=== PATIENT | male | born 1980 | race Hispanic/Latino ===

== ENCOUNTER 2017-11-08 20:42 | Inpatient (IN) | payer MEDICAID ==
[2017-11-08 20:57] VITALS: O2SAT 98
--- NOTE | 2017-11-08 20:58 | C.PDOC ---
History Of Present Illness 37 y/o M BIBEMS as transfer for admission to psych. Patient was medically cleared and accepted by ED physician prior to his arrival. Time Seen by Provider: 11/08/17 20:45 Chief Complaint (Nursing): Psychiatric Evaluation Past Medical History Family History: States: No Known Family Hx Review Of Systems Except As Marked, All Systems Reviewed And Found Negative. Constitutional: Negative for: Fever Cardiovascular: Negative for: Chest Pain Physical Exam - Physical Exam Additional Physical Exam Comments: Gen: NAD Head: NC CV: Regular rate Resp: No accessory muscle use Disposition Discussed With : Carol Alfonso Doctor Will See Patient In The: Hospital - Disposition Disposition: HOME/ ROUTINE Disposition Time: 20:58 Condition: STABLE - Clinical Impression Clinical Impression: Bipolar disorder
--- NOTE | 2017-11-08 21:52 | PCM.BM ---
<Eli Thakur - Last Filed: 11/08/17 21:52> Treatment Plan Problems - Problems identified on initial assessmt Depression Date Initiated: 11/08/17 Time Initiated: 21:52 Assessment reference: NA Status: Active Treatment assets and liabiliti Patient Assests: cooperative, self-reliant, ADL independent, cognitively intact Patient Liabilities: medical problems - Milieu Protocol Maintain good personal hygiene: daily Encourage regular showers, daily Remind patient to perform daily oral care Conduct patient checks and document Observation sheet: Q15 minutes Maintain personal safety: every shift Educate patient to report safety concerns to staff, every shift Monitor environment for contraband/sharps Medication safety: Monitor for expected outcome, potential side effects: every shift, Assess barriers to learning: every shift, Assess readiness for medication education: every shift <Bandar Ang - Last Filed: 11/10/17 08:50> - Diagnosis (1) Major depression Status: Acute Interventions: 11/10/17 08:50 * Assess/adjust medications daily and /or as needed * See patient on an individual basis 7x/week to assess symptoms of depression * Monitor for side effects & effectiveness of medications * (2) Opioid use disorder, severe, dependence Status: Acute Interventions: 11/10/17 08:50 * Assess 7x/week regarding severity of withdrawal * Educate regarding risks, benefits, side effects and alternatives of medications * Use Motivational Interviewing for abstinence * Use CBT for relapse prevention * Medication management for withdrawal symptoms * Encourage medication assisted treatment *
--- NOTE | 2017-11-09 13:19 | PCM.PSYCH ---
Initial Psychiatric Evaluation - Initial Psychiatric Evaluation Type of Admission: Involuntary Chief Complaint (in patient's own words): "My called the it account manager on me because she thought I was using drugs again." History of Present Illness and Precipitating Events: Patient is a 37 year old male with a history of opioid abuse, who was transferred to [facility] Psychiatry unit from [facility] for depression and suicidal ideation. Patient is and lives with in [facility]. Patient has 3 children (ages 16, 14, and 13) from previous relationship. 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 As per the patient, patient and his were in an argument, his thinks the patient is using drugs again, and then called the it account manager and told them he was suicidal. Tool Grinder took the patient to [facility], but was transferred to [facility] as [facility] dose not have a psych unit. Patient currently denies suicidal or homicidal ideations, and reports he "has never had suicidal thoughts in the past". Patient also denies abusing drugs and reports he has been clean since completing detox in 12/2016. He states that his does not know how to handle his previous history of drug abuse and gets nervous he will relapse. He reports she called the it account manager and told them he was suicidal to get him admitted in hopes that he will then be transferred to the detox unit. Patient reports he takes Gabapentin 1200mg four times daily, and is requesting for the dosing to be adjusted, as he "has been getting the wrong dose". Patient's pharmacy was called and medications were confirmed. Patient is prescribed Gabapentin 400mg six times daily and Seroquel 200mg ER. Hospital records from [facility] was reviewed and revealed more details reported by the about patient's suicidal ideations and threats. Patient's , Tess, was contacted via phone with patient present in room to obtain more information. As per patient's , the patient was threatening that he was going to use a large amount of heroin and end his life. She also reports that last week, he threatened suicide, took a cord and was walking outside to hang himself, but she intervened. The patient's states that when the patient does not get his way, he threatens to hurt himself. The patient 's also reports the patient is using suboxone that he gets from the streets , and his last use was 2 days before admission. [place] DIRECTOR OF TEACHING AND LEARNING was reviewed and showed the patient has filled prescriptions for oxycodone 4 times in September and once in July. Patient reports those were prescribed for his surgeries and dental surgeries and that he only takes as prescribed. Patient admits to occasional alcohol use and tobacco use. PMHx: opioid use disorder ("clean from pain killers since 12/2016"), shoulder surgery, knee surgery 2016 FamHx: mother-anxiety, father- alcohol abuse; as per , patient's brother recently tried committing suicide Current Medications: Active Medications Generic Name Dose Route Start Last Admin Trade Name Freq PRN Reason Stop Dose Admin Clonidine HCl 0.2 mg 11/09/17 10:00 11/09/17 10:21 Catapres PO 0.2 mg TID DEANNA Administration Gabapentin 600 mg 11/08/17 22:00 11/08/17 22:49 Neurontin PO 600 mg HS DEANNA Administration Hydroxyzine HCl 25 mg 11/08/17 23:45 Atarax PO Q6 PRN Agitation Levetiracetam 500 mg 11/08/17 22:00 11/09/17 10:20 Keppra PO 500 mg Q12 DEANNA Administration Nicotine 1 patch 11/09/17 10:00 11/09/17 10:24 Nicoderm Cq TD 1 patch DAILY DEANNA Administration Quetiapine Fumarate 200 mg 11/08/17 22:00 11/08/17 22:49 Seroquel PO 200 mg HS DEANNA Administration Past Psychiatric History - Past Psychiatric History Pertinent Medical Hx (Current Medical&Sleep Prob, Allergies): Allergies Allergy/AdvReac Type Severity Reaction Status Date / Time moxifloxacin [From Avelox] Allergy Verified 11/08/17 20:44 Gabapentin [Neurontin] 600 mg PO BID 11/08/17 Nicotine 21 mg/24 hr [Nicoderm Cq] 21 mg TOP Q24H 11/08/17 QUEtiapine [SEROquel] 200 mg PO DAILY 11/08/17 cloNIDine [clonidine HCl] 0.2 mg PO Q8H 11/08/17 levETIRAcetam [Keppra] 500 mg PO BID 11/08/17 Review of Systems - Neurological Neurological: UNREMARKABLE - Psychiatric Psychiatric: UNREMARKABLE. absent: Anxiety, Hallucinations, Homicidal Ideation , Irritability, Suicidal Ideation Mental Status Examination - Personal Presentation Personal Presentation: Looks stated age - Affect Affect: Broad - Motor Activity Motor Activity: Calm - Reliability in Providing Information Reliability in Providing Information: Fair - Speech Speech: Organized - Mood Mood: Neutral - Formal Thought Process Formal Thought Process: No Impairment - Cognitive Functions Orientation: Person, Place, Situation, Time Sensorium: Alert Attention/Concentration: Attentive Estimate of Intelligence: Average Memory: Recent intact, as evidence by: Ability to recall events of the day - Risk Risk: Withdrawal - Strength & Assets Inventory Strength & Assets Inventory: Family support DSM 5 DX - DSM 5 DSM 5 Diagnosis: Opioid use disorder Personality disorder, NOS Depressive disorder, NOS - Recommended/Plan of Treatment Treatment Recommendations and Plan of Treatment: Continue Gabapentin Continue Seroquel Attend groups and activities Individual therapy daily Psychoeducation and support daily Encourage compliance with meds and after care Refer to outpatient program, to include independent and couples psychotherapy Teach healthy lifestyle methods, i.e. diet, exercise, meditation Consider [facility] outpatient medication management for opioid use disorder Smoking cessation and patch 32 min Projected ELOS: 7 Prognosis: Good with treatment - Smoking Cessation Smoking Cessation Initiated: No
[2017-11-10 06:03] VITALS: BP 125/86; PULSE 89; RESP 18; TEMP 97.7
--- NOTE | 2017-11-10 14:30 | PCM.PYCHDC ---
Mental Status Examination - Mental Status Examination Orientation: Person, Place, Situation, Time Memory: Intact Mood: Neutral Affect: Broad Speech: Appropriate Attention: WNL Concentration: WNL Association: WNL Fund of Knowledge: WNL Formal Thought Process: No Impairment Suicidal Ideation: No Current Homicidal Ideation?: No Discharge Summary - Discharge Note Consultations:: List each consultation separately and include: 1. Reason for request. 2. Findings. 3. Follow-up Summary of Hospital Course include:: 1. Description of specific treatment plan utilized for patients during their course of treatmen. 2. Summarize the time- course for resolution of acute symptoms and/or regressed behaviors. 3. Describe issues identified and worked on during hospitalization. 4. Describe medication utilized. 5. Describe medical problems identified and treated. 6. Reassessment of suicide risk Summary of Hospital Course: HPI: Patient is a 37 year old male with a history of opioid abuse, who was transferred to [facility] Psychiatry unit from [facility] for depression and suicidal ideation. Patient is and lives with in [facility]. Patient has 3 children (ages 16, 14, and 13) from previous relationship. 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 As per the patient, patient and his were in an argument, his thinks the patient is using drugs again, and then called the ribber and told them he was suicidal. Mortgage Loan Counselor took the patient to [facility], but was transferred to [facility] as [facility] dose not have a psych unit. Patient currently denies suicidal or homicidal ideations, and reports he "has never had suicidal thoughts in the past". Patient also denies abusing drugs and reports he has been clean since completing detox in 12/2016. He states that his does not know how to handle his previous history of drug abuse and gets nervous he will relapse. He reports she called the ribber and told them he was suicidal to get him admitted in hopes that he will then be transferred to the detox unit. Patient reports he takes Gabapentin 1200mg four times daily, and is requesting for the dosing to be adjusted, as he "has been getting the wrong dose". Patient's pharmacy was called and medications were confirmed. Patient is prescribed Gabapentin 400mg six times daily and Seroquel 200mg ER. Hospital records from [facility] was reviewed and revealed more details reported by the about patient's suicidal ideations and threats. Patient's , Tess, was contacted via phone with patient present in room to obtain more information. As per patient's , the patient was threatening that he was going to use a large amount of heroin and end his life. She also reports that last week, he threatened suicide, took a cord and was walking outside to hang himself, but she intervened. The patient's states that when the patient does not get his way, he threatens to hurt himself. The patient 's also reports the patient is using suboxone that he gets from the streets , and his last use was 2 days before admission. [place] REAL ESTATE PROFESSIONAL was reviewed and showed the patient has filled prescriptions for oxycodone 4 times in September and once in July. Patient reports those were prescribed for his surgeries and dental surgeries and that he only takes as prescribed. Patient admits to occasional alcohol use and tobacco use. PMHx: opioid use disorder ("clean from pain killers since 12/2016"), shoulder surgery, knee surgery 2016 FamHx: mother-anxiety, father- alcohol abuse; as per , patient's brother recently tried committing suicide Hospital Course: Theptwas admitted and started on treatment with psychotherapy, support, psychoeducationand medications. All the risks and benefits of medications are discussed and the patient understood and agreed. OR and CBT used. Theptattended groups and activities. Theptimproved with the treatments provided. After care discussedwith thepatient. Encouraged patient to consider suboxone or vivitrol and to attend individual and couples therapy. - Final Diagnosis (DSM 5) Condition upon Discharge: STABLE DSM 5: Opioid use disorder Personality disorder, NOS Depressive disorder, NOS Disposition: HOME/ ROUTINE Follow-up Treatment Plan: Continue Gabapentin Continue Seroquel Attend groups and activities Individual therapy daily Psychoeducation and support daily Encourage compliance with meds and after care Refer to outpatient program, to include independent and couples psychotherapy Teach healthy lifestyle methods, i.e. diet, exercise, meditation Consider intermediate outpatient medication management for opioid use disorder Smoking cessation and patch 32 min Prescriptions/Medication Reconciliation: Gabapentin [Neurontin] 800 mg PO TID #90 tab QUEtiapine [SEROquel] 200 mg PO HS #30 tab - Smoking Cessation Smoking Cessation Medication prescribed: No - Antipsychotic Medications Pt discharged on 2 or more routine antipsychotic medications: No
== END 2017-11-10 13:24 | disposition home or self-care (01) | DRG 745 ==
LOC: C.ER 20:42 → C.5E 20:53
PROVIDERS: ADMIT Psychiatry & Neurology Psychiatry; ATTEND Psychiatry & Neurology Psychiatry
PROC: HZ56ZZZ Individual Psychotherapy for Substance Abuse Treatment, Psychoeducation (ICD-10-PCS; principal; 2017-11-08)
PROC: GZ58ZZZ Individual Psychotherapy, Cognitive-Behavioral (ICD-10-PCS; 2017-11-08)
PROC: GZ56ZZZ Individual Psychotherapy, Supportive (ICD-10-PCS; 2017-11-08)
DX: F11.20 Opioid dependence, uncomplicated (principal); R45.851 Suicidal ideations; F31.9 Bipolar disorder, unspecified; F60.9 Personality disorder, unspecified; Z72.0 Tobacco use